=== PATIENT | female | born 1975 | race Two or more races ===

== ENCOUNTER 2022-04-28 20:20 | Emergency (ER) | payer MEDICAID ==
[~2022-04-28] VITALS: Ht 170.2 cm; Wt 84.1 kg
[2022-04-28 21:47] LABS: COVID AG,FIA SOURCE NASOPHARYNGEAL
[2022-04-28 21:55] LABS: RAPID GROUP A STREP NEGATIVE (NEGATIVE)
[2022-04-28 22:07] LABS: INFLUENZA TYPE A NEGATIVE FOR TYPE A (NEGATIVE); INFLUENZA TYPE B NEGATIVE FOR TYPE B (NEGATIVE)
[2022-04-28] MEDS ORDERED: IBUPROFEN 600 MG TABLET PO ONE (22:15)
[2022-04-28] MEDS ORDERED: OXYMETAZOLINE HCL 0.05% 15 ML NASAL SPRAY NASAL ONE (22:15)
[2022-04-28] MEDS ORDERED: ACETAMINOPHEN 500 MG TABLET PO ONE (22:15)
[2022-04-28] MEDS ORDERED: IBUP-1492 PO (22:28)
[2022-04-28] MEDS ORDERED: AMOX1TAB16 PO (22:28)
[2022-04-28 23:14] VITALS: BP 158/77
== END 2022-04-28 23:14 | disposition home or self-care (01) ==
LOC: EMS 20:27
DX: H66.92 Otitis media, unspecified, left ear (principal); Z87.891 Personal history of nicotine dependence; Z88.5 Allergy status to narcotic agent; Z20.822 Contact with and (suspected) exposure to COVID-19
CPT/HCPCS: 87430; 87804; 99283